=== PATIENT | female | born 1970 | race Two or more races ===

== ENCOUNTER → 2019-10-18 | Outpatient (CLI) | payer OTHER ==
--- NOTE | 2019-10-18 07:58 | RAD ---
Examination: Ultrasound abdomen complete HISTORY: History of abdominal pain COMPARISON: None available FINDINGS: The pancreas, aorta, IVC are not well-visualized due to bowel gas. Increased echogenicity identified throughout the liver likely hepatic steatosis. No evidence of gallstones. The common bile duct measures 4.8 mm in diameter. The right kidney measures 10.7 x 5.0 x 4.2 cm. The left kidney measures 12.0 x 5.7 x 5.0 cm. The visualized spleen grossly appears unremarkable. IMPRESSION: Increased echogenicity identified throughout the liver likely hepatic steatosis. Electronically signed by: Gilles Ordonez MD (10/18/2019 7:55 AM) [id number]
--- NOTE | 2019-10-19 15:01 | RAD ---
DATE: 10/18/2019 8:14 AM EXAM: DIGITAL SCREEN BILAT W/CAD HISTORY: Screening. No priors COMPARISON: None Bilateral full field craniocaudal and mediolateral oblique images were obtained using digital technique. FINDINGS: Breast Density: SCATTERED The breast parenchyma shows scattered fibroglandular densities. Breast parenchyma level B No suspicious masses, microcalcifications or architectural distortion is present to suggest malignancy in either breast. The visualized axillae are unremarkable. IMPRESSION: No mammographic evidence of malignancy. BI-RADS CATEGORY: 1 NEGATIVE RECOMMENDED FOLLOW-UP: 12M 12 MONTH FOLLOW-UP Annual screening mammography is recommended, unless clinically indicated sooner based on symptoms or change in physical exam. PQRS compliance statement: Patient information was entered into a reminder system with a target due date for the next mammogram. Mammography is a sensitive method for finding small breast cancers, but it does not detect them all and is not a substitute for careful clinical examination. A negative mammogram does not negate a clinically suspicious finding and should not result in delay in biopsying a clinically suspicious abnormality. "Our facility is accredited by the [employer]."
== END | disposition home or self-care (01) ==
LOC: US 07:09
PROVIDERS: ATTEND Family Medicine
DX: Z12.31 Encounter for screening mammogram for malignant neoplasm of breast (principal); R10.9 Unspecified abdominal pain
CPT/HCPCS: 76700; 77067

== ENCOUNTER 2021-02-01 02:47 | Emergency (ER) | payer OTHER ==
[~2021-02-01] VITALS: Ht 152.4 cm; Wt 90.9 kg
[2021-02-01 02:52] VITALS: BP 140/81
[2021-02-01] MEDS ORDERED: LIDOCAINE 2% Multi-Dose 20 ML VIAL. ONE (02:57)
--- NOTE | 2021-02-01 02:57 | PHYS DOC ---
General Adult EDM: Chief Complaint: FOREIGNBODY EAR HPI: HPI: Patient is a 50 year old female who presents with concern for insect in her left ear. She noticed symptoms just prior to arrival, symptoms woke her. She can feel the insect moving. She felt well prior to this, had no other complaints. She denies nausea, vomiting, headache, sore throat, dyspnea, abdominal pain. No other complaints. Review of Systems: Review of Systems: Constitutional: Denies fever or chills. [] Eyes: No eye complaints. HENT: Denies nasal congestion or sore throat. Foreign body in her left ear canal. Respiratory: Denies cough or shortness of breath. [] Cardiovascular: Denies chest pain Musculoskeletal: Denies back pain or joint pain. [] Integument: Denies rash. [] Neurologic: Denies headache, focal weakness or sensory changes. [] Psychiatric: Denies depression or anxiety. [] Heart Score: C/O Chest Pain: No Risk Factors: Risk Factors: DM, Current or recent (<one month) smoker, HTN, HLP, family history of CAD, obesity. Risk Scores: Score 0 - 3: 2.5% MACE over next 6 weeks - Discharge Home Score 4 - 6: 20.3% MACE over next 6 weeks - Admit for Clinical Observation Score 7 - 10: 72.7% MACE over next 6 weeks - Early Invasive Strategies Physical Exam: PE: Constitutional: Well developed, well nourished, no acute distress, non-toxic appearance. Anxious. HENT: Normocephalic, atraumatic, oropharynx is patent and clear. Right TM is clear. Right ear canal is normal and clear. Left ear canal is obscured with a live winged insect, appears to be a cockroach. After removal of the insect, there is mild canal erythema, no edema, TM is clear, no TM perforation. No otorrhea. Eyes: Sclera are clear. Neck: Trachea midline. Cardiovascular: Well perfused appearing Lungs & Thorax: Respirations are non-labored[] Extremities: No deformity or edema Neurologic: Awake, alert, oriented, ambulatory with a steady gait, speech is fluent Psychologic: Affect normal, judgement normal, mood normal. [] EKG: EKG: [] Radiology/Procedures: Radiology/Procedures: [] Course & Med Decision Making: Course & Med Decision Making I placed 1% lidocaine in her ear canal, in order to kill the insect. I was able to remove the insect, intact and entirely using alligator forceps. Repeat exam reveals no further retained foreign bodies in the ear canal. No evidence of TM perforation. No indication for further visit exams or procedure at this time. Home care instructions provided to return precautions given. Dragon Disclaimer: Dragon Disclaimer: This electronic medical record was generated, in whole or in part, using a voice recognition dictation system. Departure Departure Impression: Primary Impression: Acute foreign body of left ear canal Qualified Codes: T16.2XXA - Foreign body in left ear, initial encounter Disposition: HOME / SELF CARE / HOMELESS Condition: GOOD Referrals: ELIZABETH BEDOLLA MD (PCP) Patient Instructions: Ear Foreign Body Additional Instructions: Return to the ER for fever of 100.4 or higher, if you notice any thick yellow or green drainage or bloody drainage from your ear, severe ear pain, vomiting, severe headache, dizziness or any other concerns. You may notice some slight ear discomfort from the insect irritating your ear canal. You may take [id number] Tylenol or ibuprofen for discomfort. Follow-up with your primary care doctor. HERO STRATTON DO Feb 01, 2021 02:57
[2021-02-01] MEDS ORDERED: LIDOCAINE 1% Multi-Dose 20 ML VIAL. INJ ONE (03:00)
== END 2021-02-01 03:40 | disposition home or self-care (01) ==
LOC: ER 02:47
DX: T16.2XXA Foreign body in left ear, initial encounter (principal); X58.XXXA Exposure to other specified factors, initial encounter; Y93.89 Activity, other specified; Y92.89 Other specified places as the place of occurrence of the external cause; Y99.8 Other external cause status
CPT/HCPCS: 69200; 99284; J3490

== ENCOUNTER → 2021-04-29 | Outpatient (CLI) | payer OTHER ==
--- NOTE | 2021-04-29 13:13 | RAD ---
EXAMINATION: MG 2D BILAT SCREENING CLINICAL HISTORY: Screening mammogram TECHNIQUE: Digital craniocaudal and mediolateral oblique views of the bilateral breasts obtained. COMPARISON: 10/18/2019 BREAST COMPOSITION: There are scattered areas of fibroglandular density. FINDINGS: No evidence of suspicious mass, calcifications, or areas of architectural distortion. IMPRESSION: No mammographic evidence of malignancy. BI-RADS ASSESSMENT: Category 1: Negative RECOMMENDATION: Return for routine bilateral screening mammogram in one year. PQRS compliance statement - Patient information was entered into a reminder system with a target due date for the next mammogram. "Our facility is accredited by the [employer]ammography [employer]." Electronically signed by: Isaías Amin DO (04/29/2021 1:11 PM) [id number]
== END ==
LOC: MAMMO 04-28 10:00
PROVIDERS: ATTEND Family Medicine
DX: Z12.31 Encounter for screening mammogram for malignant neoplasm of breast (principal)
CPT/HCPCS: 77067